=== PATIENT | male | born 1995 | race Hispanic/Latino ===

== ENCOUNTER 2024-06-07 04:45 | Observation (INO) | payer SELFPAY ==
[~2024-06-07] VITALS: Ht 165.1 cm; Wt 94.0 kg
[~2024-06-07 04:45] MED LIST: ASPI-1005 PO; ATOR40TA69 PO; FERS325 PO; METO-408 PO; PRAS10TA9 PO
[2024-06-07 05:15] LABS: BASOPHILS # (AUTO) 0.04 K/uL (0.00-0.20); BASOPHILS % (AUTO) 0.4 % (0.0-5.0); EOSINOPHILS # (AUTO) 0.16 K/uL (0.00-0.70); EOSINOPHILS % (AUTO) 1.8 % (0.0-8.0); HEMATOCRIT 32.3 % (42-54); IMMATURE GRANULOCYTE ABSOLUTE 0.04 K/uL (0-1); LYMPHOCYTES # (AUTO) 1.6 K/uL (1.0-4.8); LYMPHOCYTES % (AUTO) 18.3 % (21.0-51.0); MEAN CORPUSCULAR HEMOGLOBIN 27.3 pg (27.0-33.0); MEAN CORPUSCULAR HGB CONC 32.2 g/dL (32.0-36.0); MEAN CORPUSCULAR VOLUME 84.8 fL (79-99); MONOCYTES # (AUTO) 0.7 K/uL (0.1-1.0); MONOCYTES % (AUTO) 7.8 % (3.0-13.0); NEUTROPHILS # (AUTO) 6.4 K/uL (1.8-7.7); NEUTROPHILS % (AUTO) 71.3 % (40.0-77.0); PLATELET COUNT (AUTO) 157 K/uL (130-400); RED BLOOD CELL COUNT(AUTO) 3.81 MIL/uL (4.50-6.20); RED CELL DISTRIBUTION WIDTH 13.2 % (11.0-15.5); WHITE BLOOD COUNT (AUTO) 8.9 K/uL (4.8-10.8)
[2024-06-07 05:22] LABS: CREATININE 0.9 mg/dL (0.5-1.3); POTASSIUM 4.2 mmol/L (3.5-5.1)
[2024-06-07] MEDS: ketOROlac 15MG/ML VIAL (15MG/ML) IV ONE (05:25)
[2024-06-07] MEDS: morPHINE 4 MG SYG IVP ONE (05:25)
[2024-06-07] MEDS: ORPHENADRINE 60MG/2ML IVP ONE (05:26)
[2024-06-07] MEDS: 0.9%NACL 1000ML 1,000 ML IV ONE (05:27)
--- NOTE | 2024-06-07 05:31 | ERN ---
General Chief Complaint: Muscle Spasm Stated Complaint: C/O BACK SPASMS Time Seen by MD: 05:03 History of Present Illness Initial Comments 29-year-old male who presents for 2-3 days left flank/lower back pain. Patient reports it is positional, severe at times, waxes and wanes. Reports that he thinks it is a muscle spasm but he did recently have an NSTEMI with catheterization and he started multiple new medications, so he is worried that there may be another cause. He denies any other systemic symptoms such as fevers, vomiting, chest pains, dyspnea, or urinary symptoms. No GI symptoms. He has no neurovascular deficits, no anesthesias or paresthesias, no incontinence, no other major complaints. Pain is in the lower flank area, nonradiating. Increase with certain movements and palpation. Allergies: Coded Allergies: No Known Drug Allergies (Unverified Allergy, Unknown, 05/21/24) Home Meds Reported Medications Ferrous Sulfate (Iron) 325 Mg (65 Mg Iron) Tablet, 325 MG PO DAILY, TAB 06/07/24 Atorvastatin Calcium (LIPITOR) 40 Mg Tablet, 40 MG PO HS, TAB 05/27/24 Metoprolol Succinate (Metoprolol Succinate) 25 Mg Tab.er.24h, 25 MG PO DAILY, TAB 05/27/24 Prasugrel HCl (Prasugrel HCl) 10 Mg Tablet, 10 MG PO DAILY, TAB 05/27/24 Aspirin (ASPIRIN 81MG CHEW TAB) 81 Mg Tab.chew, 81 MG PO DAILY, TAB.CHEW 05/27/24 Discontinued Reported Medications Ferrous Sulfate (Ferrous Sulfate) 325 Mg (65 Mg Iron) Ectab, 1 TAB PO DAILY for 30 Days, #30 TAB 0 Refills 05/27/24 Past Medical History Past Medical History: Unknown Past Surgical History: Other Surgical History Other: CARDIAC STENT ROS Dictation CONSTITUTIONAL: No chills, no fever, no weakness, no diaphoresis, no malaise. HEAD/FACE: No signs of trauma. EENT: No eye pain, no blurred vision, no tearing, no double vision, no ear pain, no ear discharge, no nose pain, no nasal congestion, no throat pain, no throat swelling, no mouth pain. RESPIRATORY: No cough, no orthopnea, no SOB, no stridor, no wheezing. CARDIOVASCULAR: No chest pain, no edema, no palpitations, no syncope. GASTROINTESTINAL/ABDOMINAL: No abdominal pain, no constipation, no diarrhea, no nausea, no vomiting. GENITOURINARY: No abnormal discharge, no dysuria, no frequent urination, no hematuria. No complaints of pain in the genitals. MUSCULOSKELETAL: Left flank pain INTEGUMENTARY: No change in color, no change in hair/nails, no dryness, no lesion, no lumps, no rash. NEUROLOGICAL/PSYCH: No anxiety, not depressed, no emotional problem, no headache, no numbness, no pre-existing deficit, no history of seizures, no tremors, no weakness. HEMATOLOGIC/LYMPHATIC: Not anemic, no history of blood clots, no apparent bleeding, no bruising, glands not swollen. All Systems Negative, Except as Noted. Physical Exam Physical Exam Dictation VITAL SIGNS: Reviewed. GENERAL APPEARANCE: Alert, oriented x3, no acute distress HEAD AND FACE: Non-traumatic. EYES: PERRL, pink conjunctivas, eyelid no trauma, anterior chamber clear. EARS: Pinnas intact and no signs of trauma or erythema. Ear canals clear and n o discharge. TMs no erythema. NOSE: No discharge, no bleeding. OROPHARYNX: Mouth normal, teeth no caries, tongue pink. Pharynx clear, no erythema. Tonsils no exudates, no abscesses noted. Mucous membrane moist. NECK: Supple, non-tender, no thyromegaly, no masses, no JVD, no bruits. BREAST: Deferred. CHEST: No tenderness, no crepitus, no paradoxical movement, no retractions. LUNGS: Clear, well-ventilated, symmetric, no rales, no wheezing, no rhonchi, no stridor, good breath sounds bilaterally. HEART: Regular rate, regular rhythm, no murmur, no gallops. VASCULAR: No peripheral edema. ABDOMEN: Soft, positive bowel sounds, nondistended, no guarding, nontender, no rebound, no masses no hepatomegaly, no splenomegaly, no Boyd's sign, no hernias. RECTAL: Deferred. GENITAL: Deferred. NEUROLOGICAL: Normal speech, gross motor function intact, gross sensory function intact. MUSCULOSKELETAL: Neck nontender, full range of motion, back nontender, full range of motion. EXTREMITIES: Nontender, full range of motion. SKIN: Color pink, dry, no turgor, no rash, no lacerations, no abrasions, no contusions. LYMPHATICS: Deferred. Results Laboratory and Microbiology Lab and Micro Result MDM CC: L flank pain Historian: patient Comorbidities: recent NSTEMI w/ stent placement, retroperitoneal hematoma Limitations by social determinates of health: uninsured Ddx: bleeding, MSK, etc VSS No red flags regarding back pain on clinical exam. Hemoglobin is 10.4, baseline for patient. Chemistry panel is normal. Urinalysis unremarkable. CCT abdomen and pelvis without contrast (per my independent interpretation) shows a retro to nail hematoma, likely old. Patient received 1 L normal saline, IV Toradol and orphenadrine and morphine here in the ER. Lidocaine watch paged. Patient does have this hematoma, it is unclear if it is actively bleeding or not. It may be causing his pain in his discomfort. We will admit for observation. Hospitalist consulted. Patient agrees with the plan. ED Course Vital Signs Date Time Temp Pulse Resp B/P (MAP) Pulse Ox O2 Delivery O2 Flow Rate FiO2 06/07/24 04:46 99.0 98 20 135/70 99 Room Air DX & DISP Disposition: Inpatient Departure Impression: Primary Impression: Retroperitoneal hematoma Condition: Stable Referrals: SELF,REFERRAL (PCP) BRADFORD BELLE DO Jun 07, 2024 05:31 MINO TAN MD Jun 07, 2024 09:06
[2024-06-07] MEDS: LIDOCAINE 5% TOPICAL PATCH TP ONE (06:46)
[2024-06-07 06:55] LABS: APPEARANCE,URINE CLEAR (CLEAR); BILIRUBIN,URINE NEGATIVE (NEGATIVE); COLOR,URINE LIGHT-YELLOW (YELLOW); GLUCOSE, URINE (UA) NEGATIVE (NEGATIVE); KETONES,URINE 5 mg/dL (NEGATIVE); LEUKOCYTE ESTERASE ,URINE NEGATIVE Leu/uL (NEGATIVE); NITRATE,URINE NEGATIVE (NEGATIVE); OCCULT BLOOD,URINE NEGATIVE (NEGATIVE); PROTEIN,URINE NEGATIVE (NEGATIVE); UROBILINOGEN,URINE 0.2 mg/dL (0.2-1.0)
--- NOTE | 2024-06-07 07:06 | EKG ---
[facility] Test Date: 2024-06-07 Test Time: 04:57:16 Pat Name: PORTER RODRIGUEZ Department: ED Room: 304 Gender: M Staff Trainer: [id number] : 1995 Requested By: BRADFORD BELLE Order Number: [id number] Reading MD: Galdino Sanchez Measurements Intervals [place] Rate: 94 P: 31 [place]: 112 QRS: 28 QRSD: 85 T: -18 QT: 324 QTc: 405 Interpretive Statements Sinus rhythm Probable left atrial enlargement Compared to ECG 05/23/2024 04:14:27 Left ventricular hypertrophy no longer present T-wave abnormality no longer present Possible ischemia no longer present Electronically Signed On 06-08-2024 10:28:50 ASSISTANT PROFESSOR OF ANTHROPOLOGY by Galdino Sanchez Please click the below link to view image of tracing.
[2024-06-07 07:08] LABS: ADD UA MICROSCOPIC NO
[2024-06-07] MEDS ORDERED: hydrALAZine 20MG/ML VIAL IV PRN (10:00)
[2024-06-07] MEDS ORDERED: ondanSETRON 4MG INJ IV PRN (10:00)
[2024-06-07] MEDS ORDERED: GLUCAGON 1MG KIT 1 MG ML IM PRN (10:00)
[2024-06-07] MEDS ORDERED: MAG/ALUM/SIMETH 30 ML UDCUP PO PRN (10:00)
[2024-06-07] MEDS ORDERED: LACTULOSE 20 GM/30 ML UDCUP PO PRN (10:00)
[2024-06-07] MEDS ORDERED: PoTASSium chl 10% ELIXIR 20MEQ 20 MEQ/15 ML UDCUP PO PRN (10:00)
[2024-06-07] MEDS ORDERED: ZOLPidem TARTrate 5 MG TAB PO PRN (10:00)
[2024-06-07] MEDS ORDERED: DiphenhydrAMINE HCL 50 MG/ML VIAL IV PRN (10:00)
[2024-06-07] MEDS ORDERED: DEXTROSE 50%-WATER 50 ML DISP.SYRIN IV PRN (10:00)
[2024-06-07] MEDS ORDERED: NITROGLYCERIN 0.4 MG SL TAB SL PRN (10:00)
[2024-06-07] MEDS ORDERED: morPHINE 2 MG SYG IVP PRN (10:00)
[2024-06-07] MEDS ORDERED: PoTASSium chloRIDE 10MEQ/100ML 100 ML IV PRN (10:00)
[2024-06-07] MEDS ORDERED: FAMOTIDINE 20MG VIAL IV PRN (10:00)
[2024-06-07] MEDS ORDERED: acetaMINOPHEN 325 MG TAB PO PRN ×3 (10:00)
[2024-06-07] MEDS ORDERED: guaiFENesin-DM 200/20MG 10ML PO PRN (10:00)
[2024-06-07] MEDS ORDERED: MAGNESIUM 2GM PREMIX 50ML 50 ML IV PRN (10:00)
[2024-06-07] MEDS ORDERED: PoTASSium chloRIDE 10MEQ SR 10 MEQ/TAB TAB.SR.24H PO PRN (10:00)
[2024-06-07] MEDS ORDERED: traMADol /APAP 37.5MG/325MG TAB PO PRN (10:00)
--- NOTE | 2024-06-07 10:21 | HP ---
[facility]ORY [facility] PHYS[facility] Date of Service: Jun 07, 2024 Time of Service: 09:55 PCP:self referring Admitting: Dr Chowdary, Allergies: No Allergy Information Available, No Known Drug Allergies HISTORY OF PRESENT ILLNESS: [ Patient is 29 years old male with a past medical history of stent placement with Dr. Long on May 23 2024 s/p rectal peritoneal hematoma, who came to emergency department for the evaluation of the left lung pain/lower back pain for the past two days. Patient reports that the pain is positional, severe at times which comes and goes. Patient also stated that when he moves head to the right or to the left he feels like there was a shooting pain down goes to the left flank pain/back pain. He denies any other systemic symptoms such as fevers, vomiting, chest pains, dyspnea, or urinary symptoms. No GI symptoms. He has no neurovascular d eficits, no anesthesias or paresthesias, no incontinence, no other major complaints. Increase with certain movements and palpation. Most recent vital signs temperature 98.4 pulse 69 respiration 14 blood pressure 113/59 patient is on room air satting 98%. UA negative. WBC 8.9 hemoglobin 10.4 hematocrit 32.3 platelets 157. Sodium 132 potassium 4.2 CO2 23 BUN eight creatinine 0.9 GFR 119 glucose [address] abdomen/pelvis, ultrasound renal, CT spine cervical, CT spine thoracic, CT spine lumbar still pending. Patient will be admitted under hospitalist care for further evaluation. Patient agrees with the plan.] REVIEW OF SYSTEMS CONSTITUTIONAL: Denies fevers, chills, or night sweats. No unintentional weight loss reported. NEUROLOGICAL: Denies headache, amaurosis fugax, motor weakness, sensory de ficit, vertigo/spinning sensation, gait abnormalities, or tremors. Complains of shooting pain with the neck movement down to the left flank pain ENT: No hearing loss, otalgia, otorrhea, rhinitis, rhinorrhea, hoarseness, or sore throat. CARDIOVASCULAR: Denies any exertional angina, dyspnea on exertion, orthopnea, paroxysmal nocturnal dyspnea, palpitations, life-threatening arrhythmias, claudication. PULMONARY: Denies any shortness of breath, cough, phlegm/sputum, hemoptysis, pleuritic chest pain. SLEEP: Denies morning headaches, daytime somnolence or napping. Denies difficulty falling asleep, staying asleep, waking from sleep. Denies knowledge of snoring. GASTROINTESTINAL: Denies any type of dysphagia to either liquids or solids. Denies nausea, vomiting, pyrosis, early satiety, abdominal pain, diarrhea, constipation, or changes in stool consistency or caliber. Denies coffee-ground emesis, hematemesis, hematochezia, or melanotic stools. GENITOURINARY: Denies frequency, urgency, nocturia, hematuria or incontinence (Storage/Irritative symptoms.) Low urinary stream, straining to void, urinary intermittency or hesitancy, splitting of the voiding stream, terminal dribbling. ENDOCRINOLOGIC: Denies polyuria, polydipsia, polyphagia or heat/cold intolerances. HEMATOLOGIC: Denies thrombophilia/previous clots, or coagulopathy/bleeding disorders. ONCOLOGIC: Denies personal history of malignancy. DERMATOLOGIC: Denies rashes or pruritus. PSYCHIATRIC: Denies any suicidal or homicidal ideation. Denies hallucinations. PAST MEDICAL HISTORY: [ Stent placement May 23, 2024, obesity] PAST SURGICAL HISTORY: [ Stent placement May 23, 2024 with . ] PAST SOCIAL HISTORY: [ Patient denies smoking. Patient drinks occasionally. Patient stated that last time he was smoking marijuana it was in [place] last month May 05, 2024 ] FAMILY HISTORY: [ Noncontributory. Patient lives at home with mother ] Coded Allergies: No Known Drug Allergies (Unverified Allergy, Unknown, 05/21/24) PHYSICAL EXAM GENERAL APPEARANCE: The patient is awake, alert, and oriented, in no acute cardiopulmonary distress. NEUROLOGICAL: Cranial nerves II-XII grossly intact. Motor is 5/5 in bilateral upper and lower extremities proximal to distal. No sensory deficits. HEENT: Face is symmetric. Pupils are equal and reactive. Extraocular movements are intact. NECK: Supple. No JVD. No thyromegaly. No submental, submandibular, pre-/postauricular, occipital or supraclavicular lymphadenopathy. CHEST: Normal chest expansion. No Telemetry. LUNGS: Absence of any rales, rhonchi or any wheezing. CARDIOVASCULAR: Regular. S1 and S2 normal. No appreciable rubs, murmurs or gallops. ABDOMEN: Soft, nontender, and nondistended. There is no rebound, voluntary guarding, or rigidity. : Deferred. No Sin. EXTREMITIES: Non-edematous and not cyanotic. No clubbing. Good capillary refill. SKIN: No skin breakdown. Vital Sign (Last 24 Hours) 06/07/24 07:48 Temp 98.4 Pulse 69 Resp 14 B/P (MAP) 113/59 Pulse Ox 98 O2 Delivery Room Air* O2 Flow Rate 0 FiO2 21 LABS: Laboratory: Test 06/07/24 06:43 06/07/24 05:08 Range/Units Urine Color LIGHT-YELLOW YELLOW Urine Appearance CLEAR CLEAR Urine pH 6.0 5.0-8.0 Urine Specific Valders 1.006 1.001-1.031 Urine Protein NEGATIVE NEGATIVE mg/dL Urine Glucose (UA) NEGATIVE NEGATIVE mg/dL Urine Ketones 5 H NEGATIVE mg/dL Urine Occult Blood NEGATIVE NEGATIVE Urine Nitrate NEGATIVE NEGATIVE Urine Bilirubin NEGATIVE NEGATIVE mg/dL Urine Urobilinogen 0.2 0.2-1.0 mg/dL Urine Leukocyte Esterase NEGATIVE NEGATIVE Roberto/uL White Blood Count 8.9 4.8-10.8 K/uL Red Blood Count 3.81 L 4.50-6.20 MIL/uL Hemoglobin 10.4 L 14.0-18.0 g/dL Hematocrit 32.3 L 42-54 % Mean Corpuscular Volume 84.8 79-99 fL Mean Corpuscular Hemoglobin 27.3 27.0-33.0 pg Mean Corpuscular Hemoglobin Concent 32.2 32.0-36.0 g/dL Red Cell Distribution Width 13.2 11.0-15.5 % Platelet Count 157 130-400 K/uL Mean Platelet Volume 10.8 H 7.5-10.5 fL Immature Granulocyte % (Auto) 0.4 0-1 % Neutrophils (%) (Auto) 71.3 40.0-77.0 % Lymphocytes (%) (Auto) 18.3 L 21.0-51.0 % Monocytes (%) (Auto) 7.8 3.0-13.0 % Eosinophils (%) (Auto) 1.8 0.0-8.0 % Basophils (%) (Auto) 0.4 0.0-5.0 % Neutrophils # (Auto) 6.4 1.8-7.7 K/uL Lymphocytes # (Auto) 1.6 1.0-4.8 K/uL Monocytes # (Auto) 0.7 0.1-1.0 K/uL Eosinophils # (Auto) 0.16 0.00-0.70 K/uL Basophils # (Auto) 0.04 0.00-0.20 K/uL Absolute Immature Granulocyte (auto 0.04 0-1 K/uL Nucleated Red Blood Cells 0.0 0.0-0.19 % Sodium Level 132 L 136-145 mmol/L Potassium Level 4.2 3.5-5.1 mmol/L Chloride Level 98 L 101-111 mmol/L Carbon Dioxide Level 23 21-32 mmol/L Blood Urea Nitrogen 8 7-18 mg/dL Creatinine 0.9 0.5-1.3 mg/dL Glomerular Filtration Rate Calc 119 >90 mL/min Random Glucose 103 70-105 mg/dL Total Calcium 9.5 8.5-10.1 mg/dL Current Medications Medications (Trade) Dose Ordered Sig/Clara Route PRN Reason Start Time Stop Time Status Last Admin Dose Admin Acetaminophen (TYLenol 325MG TAB) 650 mg Q4H PRN PO MILD PAIN (1-3) 06/07/24 10:00 07/07/24 09:59 UNV Acetaminophen (TYLenol 325MG TAB) 650 mg Q6H PRN PO MILD PAIN (1-3) 06/07/24 10:00 07/07/24 09:59 UNV Acetaminophen (TYLenol 325MG TAB) 650 mg Q6H PRN PO TEMPERATURE GREATER THAN 101.5 06/07/24 10:00 07/07/24 09:59 UNV Al Hydroxide/Mg Hydroxide (MAALox PLUS 30ML) 30 ml Q6H PRN PO INDIGESTION 06/07/24 10:00 07/07/24 09:59 UNV Dextrose (D50w) 50 ml AD PRN IV HYPOGLYCEMIA PROTOCOL 06/07/24 10:00 07/07/24 09:59 Diphenhydramine HCl (BENAdryl INJ) 25 mg Q6H PRN IV SEVERE ITCHING/RASH 06/07/24 10:00 07/07/24 09:59 UNV Famotidine (Pepcid 20mg Vial) 20 mg BID IV 06/07/24 21:00 07/07/24 20:59 UNV Famotidine (Pepcid 20mg Vial) 20 mg BID PRN IV NAUSEA/VOMITING 06/07/24 10:00 07/07/24 09:59 UNV Glucagon (Glucagon 1mg Kit) 1 mg AD PRN IM HYPOGLYCEMIA PROTOCOL 06/07/24 10:00 07/07/24 09:59 Guaifenesin/ Dextromethorphan (RobiTUSSin DM 200/20MG 10ML) 10 ml Q4H PRN PO COUGH 06/07/24 10:00 07/07/24 09:59 UNV Hydralazine HCl (APRESOLine 20MG INJ) 10 mg Q6H PRN IV For:SBP above 160;DBP above 90 06/07/24 10:00 07/07/24 09:59 UNV Insulin Human Regular (humuLIN R 100 UNIT/ML 3ML) INSULIN SLIDING SCAL... ACHS SQ 06/07/24 11:30 07/07/24 11:29 Ketorolac Tromethamine (toRADol) 15 mg Q8H PRN IV MODERATE PAIN (4-6) 06/07/24 10:00 06/12/24 09:59 UNV Lactulose (Constulose 20gm/ 30ml Udcup) 20 gm BID PRN PO CONSTIPATION 06/07/24 10:00 07/07/24 09:59 UNV Magnesium Sulfate 50 ml @ 0 mls/hr PROTOCOL PRN IV OTHER [SEE ORDER COMMENTS] 06/07/24 10:00 07/07/24 09:59 Morphine Sulfate (morPHINE 2MG SYG) 1 mg Q4H PRN IVP SEVERE PAIN (7-10) 06/07/24 10:00 06/14/24 09:59 UNV Nitroglycerin (Nitrostat) 0.4 mg PROTOCOL PRN SL CHEST PAIN 06/07/24 10:00 07/07/24 09:59 UNV Ondansetron HCl (zoFRAN 4MG INJ) 4 mg Q6H PRN IV NAUSEA/VOMITING 06/07/24 10:00 07/07/24 09:59 UNV Potassium Chloride 100 ml @ 100 mls/hr AD PRN IV POTASSIUM PROTOCOL 06/07/24 10:00 07/07/24 09:59 Potassium Chloride (K-Dur 10meq Sr Tab) 10 meq AD PRN PO POTASSIUM PROTOCOL 06/07/24 10:00 07/07/24 09:59 Potassium Chloride (KCl 10% Elixir 20meq/15ml) 10 meq AD PRN PO POTASSIUM PROTOCOL 06/07/24 10:00 07/07/24 09:59 Tramadol/ Acetaminophen (UltraCET) 1 tab Q6H PRN PO MODERATE PAIN (4-6) 06/07/24 10:00 06/12/24 09:59 UNV Zolpidem Tartrate (AmbIEN) 5 mg HS PRN PO INSOMNIA 06/07/24 10:00 07/07/24 09:59 UNV DIAGNOSTICS / RADIOLOGY: [ ] ASSESSMENT: [ Intractable Left flank pain of unknown origin POA Uncontrolled hypertension POA Multifactorial anemia POA Electrolyte imbalance hyponatremia Na 132, hypochloremia 98 History of stent placement May [id number] with History of rectal peritoneal hematoma per CT abdomen/pelvis ] PLAN: [ Admit to: Medical-surgical floor with telemetry Consults: None Antibiotics: None Tests: Ultrasound renal. CT spine cervical. CT spine thoracic. CT spine lumbar NEURO: Minimize central acting medications as possible. Fall Precautions. Well lighted room through the day and minimize interruptions through the night to prevent acute delirium. PULMONARY: Supplemental 02 as needed BiPAP as necessary, for respiratory distress Titrate Fio2 to keep Spo2 > or = 90% DuoNebs and CPT as needed IS hourly while awake for pulmonary hygiene Out of bed to chair as tolerated VAP Bundle Maintain aspiration precautions at all times CARDIOVASCULAR: Follow hemodynamics. Vital signs per facility protocol GI & NUTRITION: Continue nutritional support Aspirations precautions Prokinetic agents and laxatives as needed KIDNEYS & ELECTROLYTES: Strict monitoring of intake and output Daily weights Avoid nephrotoxic agents Monitor electrolytes and replace as needed Goal urine output of 30mL/hr or 0.5mL/kg/hr Medications to be dosed according to renal function. Avoid contrast if possible ENDOCRINE: Maintain blood glucose between 100-180 at all times. Insulin sliding scale for blood glucose management Hypoglycemia and hyperglycemia protocol in place INFECTIOUS DISEASE: Trend temperature, WBC and procalcitonin level Follow cultures, deescalate antibiotics as soon as possible. Panculture if new onset fever HEMATOLOGY & COAGULATION: Monitor H&H. Keep Hgb > 7 Transfuse 1 unit of PRBC for Hgb < 7 Transfuse 1 pack of platelets of platelets < 20, 000 Watch for any signs and symptoms of bleeding SKIN: Pressure ulcer prevention per facility protocol Specialty mattress as needed Treatment plan discussed with patient and family at the bedside Medications to be reconciled once obtained by patient and/or family and available to be reconciled in computer p.r.n. medication for pain nausea and vomiting Questions were answered We will continue to monitor the patient closely Sanitary Engineer for disposition Rehab: PT/OT GI: PPI DVT: SCD's Code Status: Full Resuscitation Disposition: TBD Prognosis: Guarded ] ATTESTATION BY PHYSICIAN I have seen and examined the patient. I reviewed the documentation, medical decision making, and treatment plan as noted by the mid-level provider above. I agree with the findings and plan of care. Iliana Chowdary MD, [facility] [employer] Jun 07, 2024 10:21
[2024-06-07] MEDS ORDERED: CYCLOBENZAPRINE HCL 10 MG TABLET PO PRN (10:30)
--- NOTE | 2024-06-07 10:47 | HMCIMG ---
CT THORACIC SPINE WITHOUT CONTRAST INDICATION: Severe back pain TECHNIQUE: Axial helical 2 mm thick images obtained through the thoracic spine obtained without contrast. Coronal and sagittal reformatted images were submitted for interpretation. CT was performed with one or more of the following dose reduction techniques: Automated exposure control, adjustment of the mA and/or kV according to patient size, or use of iterative reconstruction technique. COMPARISON: None FINDINGS: Vertebral bodies are normal in height, without evidence for fracture or compression deformity. No evidence for subluxation. The intervertebral discs are well-preserved. No significant disc protrusion/extrusion or moderate of high-grade neuroforaminal narrowing or central canal stenosis. No significant facet disease. The paravertebral soft tissues appear normal. Left lung base opacities. IMPRESSION: Left lung base atelectasis favored over evolving pneumonia at this juncture. Otherwise, normal CT imaging of the thoracic spine.
[2024-06-07] MEDS ORDERED: FERR-82 PO (10:48)
--- NOTE | 2024-06-07 10:50 | HMCIMG ---
CT LUMBAR SPINE WITHOUT CONTRAST INDICATION: Severe back pain TECHNIQUE: Noncontrast helical CT of the lumbar spine obtained at 2 mm slice thickness with reconstructions in the coronal and sagittal planes. CT was performed with one or more of the following dose reduction techniques: Automated exposure control, adjustment of the mA and/or kV according to patient size, or use of iterative reconstruction technique. COMPARISON: None FINDINGS: Moderate amount of right retroperitoneal hemorrhage. Normal lordosis is maintained. Vertebral bodies are normal in height, without evidence for fracture or compression deformity. No evidence for subluxation. Additional specific findings are as follows: T12-L1: No significant disc protrusion/extrusion or moderate or high-grade neuroforaminal narrowing or central canal stenosis. No significant facet disease. L1-L2: No significant disc protrusion/extrusion or moderate or high-grade neuroforaminal narrowing or central canal stenosis. No significant facet disease. L2-L3: No significant disc protrusion/extrusion or moderate or high-grade neuroforaminal narrowing or central canal stenosis. No significant facet disease. L3-L4: No significant disc protrusion/extrusion or moderate or high-grade neuroforaminal narrowing or central canal stenosis. No significant facet disease. L4-L5: No significant disc protrusion/extrusion or moderate or high-grade neuroforaminal narrowing or central canal stenosis. No significant facet disease. L5-S1:No significant disc protrusion/extrusion or moderate or high-grade neuroforaminal narrowing or central canal stenosis. No significant facet disease. The sacroiliac joints appear normal. The paravertebral soft tissues appear normal. IMPRESSION: Moderate amount of right retroperitoneal hemorrhage. Pre and postcontrast CT imaging of the abdomen and pelvis is recommended for further evaluation. Otherwise, normal CT imaging of the lumbar spine.
--- NOTE | 2024-06-07 10:56 | HMCIMG ---
PORTABLE CHEST RADIOGRAPH INDICATION: L flank pain COMPARISON: 05/21/2024 FINDINGS: Heart size is normal. The pulmonary vascularity and florian appear normal. No abnormal pulmonary parenchymal opacity or consolidation identified. No significant pleural effusion noted. No pneumothorax detected. IMPRESSION: No radiographic evidence for any acute cardiopulmonary process.
--- NOTE | 2024-06-07 10:58 | HMCIMG ---
CT ABDOMEN WITHOUT CONTRAST. CT PELVIS WITHOUT CONTRAST. INDICATION: Right flank pain TECHNIQUE: Routine transaxial imaging using 5 mm slice thickness through the abdomen and pelvis without the administration of IV contrast. Thin slice reconstructions are also provided. Coronal and sagittal reformatted images acquired for interpretation. CT was performed with one or more of the following dose reduction techniques: Automated exposure control, adjustment of the mA and/or kV according to patient size, or use of iterative reconstruction technique. COMPARISON: None FINDINGS: ON NONCONTRAST IMAGING: ABDOMEN: Heart size is normal. Visible lung bases are clear. No abnormal renal calcifications, hydronephrosis, perinephric inflammation, or proximal hydroureter detected. The liver is normal in size and smooth in contour without biliary duct dilation. The spleen is normal in size and attenuation. The gallbladder appears normal. The pancreas appears normal without pancreatic duct dilation. The adrenal glands appear normal. Right-sided retroperitoneal hematoma lies anterior to the right psoas muscle and encroaches upon the anterior fibers of the right psoas muscle, including extension from the level of the right kidney to the right iliac fossa measuring 20.0 cm (craniocaudal) by 6.0 cm (transverse) by 2.2 cm (AP). Right kidney is anteriorly displaced as a result, but appears otherwise normal. No significant abdominal, retrocrural or retroperitoneal adenopathy noted. No evidence for intra-abdominal free air or organized fluid collection. No aortic aneurysmal dilation identified. PELVIS: No abnormal calcifications within the urinary bladder or distal ureters. No evidence for free air or organized pelvic fluid collection. No significant pelvic adenopathy detected. Visualized small and large bowel loops appear unremarkable. Terminal ileum appears unremarkable. The appendix appears normal. Visible osseous structures are intact. IMPRESSION: Right-sided retroperitoneal hematoma without any intra-abdominal or intrapelvic organ abnormality.
--- NOTE | 2024-06-07 11:05 | HMCIMG ---
CT CERVICAL SPINE WITHOUT CONTRAST INDICATION: Severe neck pain TECHNIQUE: Contiguous axial computed tomography imaging using 2 mm slice thickness through the cervical spine. Reconstructions in the sagittal and coronal planes. CT was performed with one or more of the following dose reduction techniques: Automated exposure control, adjustment of the mA and/or kV according to patient size, or use of iterative reconstruction technique. COMPARISON: None. FINDINGS: Normal lordosis is maintained. Vertebral bodies are normal stature without evidence for compression deformity or fracture. No evidence for subluxation. The intervertebral disc heights are well-preserved. The craniocervical junction appears normal. The atlantoaxial articulation is within normal limits. The dens is intact. The pre- and paravertebral soft tissues appear unremarkable. IMPRESSION: No evidence for fracture or subluxation.
[2024-06-07] MEDS: INSULIN humuLIN R 100 UNIT/ML 3ML SQ SCH (11:30)
--- NOTE | 2024-06-07 13:36 | HMCIMG ---
ULTRASOUND RENAL COMPLETE INDICATION: Left flank pain TECHNIQUE: Routine ultrasound of the kidneys and urinary bladder with grayscale and color Doppler imaging was performed in real-time, and subsequently made available for review. COMPARISON: No prior studies available for comparison. FINDINGS: The right kidney measures 10.0 x 5.5 x 4.9 cm. No abnormal mass demonstrated. No evidence for hydronephrosis or shadowing stone. The left kidney measures 10.0 x 5.2 x 4.8 cm. No abnormal mass demonstrated. No evidence for hydronephrosis or shadowing stone. Urinary bladder thickness measures 0.3 cm. IMPRESSION: Normal sonographic appearance of the kidneys and urinary bladder.
--- NOTE | 2024-06-07 13:43 | HMCIMG ---
NUCLEAR MEDICINE VENTILATION/PERFUSION SCAN INDICATION: Elevated d-dimer COMPARISON: Most Recent Chest Radiograph from 06/05/2024. RADIOPHARMACEUTICALS: 6.0 mCi of xenon-133 gas and 5.0 mCi of intravenous Tc 99m MAA FINDINGS: No abnormal matched or mismatched ventilation or perfusion defect noted. Symmetric bilateral distribution of radiopharmaceutical on both the perfusion and ventilation images identified. IMPRESSION: Negative for pulmonary embolism.
[2024-06-07] MEDS: ketOROlac 15MG/ML VIAL (15MG/ML) IV PRN (14:41)
--- NOTE | 2024-06-07 14:50 | NUR ---
RECEIVED REPORT FROM SAMAN BOSTON-ER. PT WILL BE TRANSFERRING TO ROOM 304.
--- NOTE | 2024-06-07 14:53 | NUR ---
CALLED REPORT TO JAYANT NURSE AT 1450, PT STABLE NO DISTRESS VITALS WNL NO C/O PAIN , PT MEDICATED FOR PAIN PRIOR TO TRANSFER, HOME MEDICATIONS RECONCILED. PT TRANSFERRED BY STRETCHER W/PERSONAL BELONGINGS , MOTHER AT BEDSIDE.
--- NOTE | 2024-06-07 15:00 | NUR ---
PT IN ROOM 304 AOX3, MOTHER AT BEDSIDE, DENIES ANY PAIN OR DISCOMFORT AT THIS TIME. SKIN INTACT, STABLE VS, 18G RFA,NO 02 IN PLACED, SL. BED LOW AND LOCKED, SIDERAILS X2 UP, CALL LIGHT WITHIN REACH. NO FURTHER COMMENTS OR CONCERNS AT THIS TIME.
[2024-06-07 16:00] VITALS: BP_SYST 122; BP_SYST 148; BP_DIAS 70; BP_DIAS 84; PULSE 69; PULSE 80; RESP 19; RESP 20; TEMP 98.2; TEMP 98.4
[2024-06-07 19:00] VITALS: O2SAT 99
[2024-06-07] MEDS: FAMOTIDINE 20MG VIAL IV SCH (19:06)
[2024-06-07] MEDS: atorVAStatin 40 MG TABLET PO SCH (19:07)
[2024-06-07 20:00] VITALS: BP 125/73; PULSE 76; RESP 18; TEMP 98.2
[2024-06-08] VITALS: BP 119/62; PULSE 81; RESP 18; TEMP 98.2
--- NOTE | 2024-06-08 03:19 | NUR ---
PM NOTE PATIENT NOTED LAYING IN BED. AWAKE, ALERT, ORIENTED X4. RESPIRATIONS EVEN AND UNLABORED. NO SIGNS OR SYMPTOMS OF DISCOMFORT NOTED AT THIS TIME. PATIENT VOICED PAIN IS "TOLERABLE" AT THIS TIME. PATIENT DENIES NEEDING PAIN MEDICATION AT THIS TIME.
[2024-06-08 04:00] VITALS: BP 124/67; PULSE 83; RESP 18; TEMP 98.4
[2024-06-08 04:25] LABS: BASOPHILS # (AUTO) 0.03 K/uL (0.00-0.20); BASOPHILS % (AUTO) 0.5 % (0.0-5.0); EOSINOPHILS # (AUTO) 0.17 K/uL (0.00-0.70); EOSINOPHILS % (AUTO) 2.7 % (0.0-8.0); HEMATOCRIT 27.1 % (42-54); IMMATURE GRANULOCYTE ABSOLUTE 0.02 K/uL (0-1); LYMPHOCYTES # (AUTO) 1.4 K/uL (1.0-4.8); LYMPHOCYTES % (AUTO) 21.7 % (21.0-51.0); MEAN CORPUSCULAR HEMOGLOBIN 27.2 pg (27.0-33.0); MEAN CORPUSCULAR HGB CONC 32.1 g/dL (32.0-36.0); MEAN CORPUSCULAR VOLUME 84.7 fL (79-99); MONOCYTES # (AUTO) 0.6 K/uL (0.1-1.0); MONOCYTES % (AUTO) 9.6 % (3.0-13.0); NEUTROPHILS # (AUTO) 4.1 K/uL (1.8-7.7); NEUTROPHILS % (AUTO) 65.2 % (40.0-77.0); PLATELET COUNT (AUTO) 164 K/uL (130-400); RED CELL DISTRIBUTION WIDTH 13.3 % (11.0-15.5); WHITE BLOOD COUNT (AUTO) 6.3 K/uL (4.8-10.8)
[2024-06-08 04:49] LABS: HEMOGLOBIN A1C 5.1 % (4.0-6.0)
[2024-06-08 04:50] LABS: ALBUMIN 2.8 g/dL (3.5-5.0); BILIRUBIN,DIRECT 0.5 mg/dL (0.0-0.3); BILIRUBIN,TOTAL 1.2 mg/dL (0.2-1.0); CREATININE 0.7 mg/dL (0.5-1.3); MAGNESIUM 1.9 mg/dL (1.80-2.40); POTASSIUM 4.2 mmol/L (3.5-5.1); TOTAL PROTEIN, SERUM 6.8 g/dL (6.0-8.3)
--- NOTE | 2024-06-08 04:59 | NUR ---
ABNORMAL LABS CALLED [facility] TO REPORT ELEVATED TROPONIN 218.3. PENDING CALL BACK FROM RADHA WATT.
[2024-06-08 08:00] VITALS: BP 124/72; PULSE 83; RESP 16; TEMP 98.4
[2024-06-08] MEDS: metOPROLol sucCINATE 25 MG TAB.SR.24H PO SCH (08:17)
[2024-06-08] MEDS: FERROUS SULFATE 325 MG TABLET.DR PO SCH (08:17)
[2024-06-08] MEDS: ASPIRIN 81MG CHEW TAB PO SCH (08:17)
[2024-06-08] MEDS: PRASUGREL HCL 10 MG TABLET PO SCH (08:17)
[2024-06-08 08:30] VITALS: O2SAT 98
[2024-06-08 12:00] VITALS: BP 115/74; PULSE 91; RESP 20; TEMP 98.6
[2024-06-08] MEDS ORDERED: CYCL10TA16 PO (13:51)
--- NOTE | 2024-06-08 13:56 | DS ---
Discharge Summary Hospital Course Summary: DATE OF ADMISSION:[06/07/2024] DATE OF DISCHARGE:[06/08/2024] DISPOSITION:[Home] CONDITION:[Medically stable] CONSULTANTS:[None] FOLLOW UP APPOINTMENTS:[PCP 2 to 3 days. 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 Long on May 23 2024 s/p rectal peritoneal hematoma, who came to emergency department for the evaluation of the left lung pain/lower back pain for the past two days. Patient reports that the pain is positional, severe at times which comes and goes. Patient also stated that when he moves head to the right or to the left he feels like there was a shooting pain down goes to the left flank pain/back pain. He denies any other systemic symptoms such as fevers, vomiting, chest pains, dyspnea, or urinary symptoms. No GI symptoms. He has no neurovascular deficits, no anesthesias or paresthesias, no incontinence, no other major complaints. Increase with certain movements and palpation. Most recent vital signs temperature 98.4 pulse 69 respiration 14 blood pressure 113/59 patient is on room air satting 98%. UA negative. WBC 8.9 hemoglobin 10.4 hematocrit 32.3 platelets 157. Sodium 132 potassium 4.2 CO2 23 BUN eight creatinine 0.9 GFR 119 glucose [address] abdomen/pelvis, ultrasound renal, CT spine cervical, CT spine thoracic, CT spine lumbar still pending. Patient will be admitted under hospitalist care for further evaluation. Patient agrees with the plan. Throughout the hospitalization patient underwent V/Q scan which was negative. Thoracic spine CT which showed left lung base atelectasis favored over evolving pneumonia. Normal CT image of thoracic spine. Lumbar spine CT showed moderate amount of right retroperitoneal hemorrhage. Cervical spine CT shows no evidence of fracture or subluxation. Renal ultrasound negative chest x-ray negative. CT abdomen/pelvis showed right-sided retroperitoneal hematoma without any intra-abdominal or intrapelvic organ abnormality which has improved compared to the previous study. Procedure(s): REVIEW OF SYSTEMS CONSTITUTIONAL: Denies fevers, chills, or night sweats. No unintentional weight loss reported. NEUROLOGICAL: Denies headache, amaurosis fugax, motor weakness, sensory deficit, vertigo/spinning sensation, gait abnormalities, or tremors. denies of shooting pain with the neck movement down to the left flank pain ENT: No hearing loss, otalgia, otorrhea, rhinitis, rhinorrhea, hoarseness, or sore throat. CARDIOVASCULAR: Denies any exertional angina, dyspnea on exertion, orthopnea, paroxysmal nocturnal dyspnea, palpitations, life-threatening arrhythmias, claudication. PULMONARY: Denies any shortness of breath, cough, phlegm/sputum, hemoptysis, pleuritic chest pain. SLEEP: Denies morning headaches, daytime somnolence or napping. Denies difficulty falling asleep, staying asleep, waking from sleep. Denies knowledge of snoring. GASTROINTESTINAL: Denies any type of dysphagia to either liquids or solids. Denies nausea, vomiting, pyrosis, early satiety, abdominal pain, diarrhea, constipation, or changes in stool consistency or caliber. Denies coffee-ground emesis, hematemesis, hematochezia, or melanotic stools. GENITOURINARY: Denies frequency, urgency, nocturia, hematuria or incontinence (Storage/Irritative symptoms.) Low urinary stream, straining to void, urinary intermittency or hesitancy, splitting of the voiding stream, terminal dribbling. ENDOCRINOLOGIC: Denies polyuria, polydipsia, polyphagia or heat/cold intolerances. HEMATOLOGIC: Denies thrombophilia/previous clots, or coagulopathy/bleeding disorders. ONCOLOGIC: Denies personal history of malignancy. DERMATOLOGIC: Denies rashes or pruritus. PSYCHIATRIC: Denies any suicidal or homicidal ideation. Denies hallucinations. Assessment/Plan: ASSESSMENT: [ Intractable Left flank pain of unknown origin POA Uncontrolled hypertension POA Multifactorial anemia POA Electrolyte imbalance hyponatremia Na 132, hypochloremia 98 History of stent placement May [id number] with History of rectal peritoneal hematoma per CT abdomen/pelvis ] PLAN: [ Admit to: Medical-surgical floor with telemetry Consults: None Antibiotics: None Tests: Ultrasound renal. CT spine cervical. CT spine thoracic. CT spine lumbar NEURO: Minimize central acting medications as possible. Fall Precautions. Well lighted room through the day and minimize interruptions through the night to prevent acute delirium. PULMONARY: Supplemental 02 as needed BiPAP as necessary, for respiratory distress Titrate Fio2 to keep Spo2 > or = 90% DuoNebs and CPT as needed IS hourly while awake for pulmonary hygiene Out of bed to chair as tolerated VAP Bundle Maintain aspiration precautions at all times CARDIOVASCULAR: Follow hemodynamics. Vital signs per facility protocol GI & NUTRITION: Continue nutritional support Aspirations precautions Prokinetic agents and laxatives as needed KIDNEYS & ELECTROLYTES: Strict monitoring of intake and output Daily weights Avoid nephrotoxic agents Monitor electrolytes and replace as needed Goal urine output of 30mL/hr or 0.5mL/kg/hr Medications to be dosed according to renal function. Avoid contrast if possible ENDOCRINE: Maintain blood glucose between 100-180 at all times. Insulin sliding scale for blood glucose management Hypoglycemia and hyperglycemia protocol in place INFECTIOUS DISEASE: Trend temperature, WBC and procalcitonin level Follow cultures, deescalate antibiotics as soon as possible. Panculture if new onset fever HEMATOLOGY & COAGULATION: Monitor H&H. Keep Hgb > 7 Transfuse 1 unit of PRBC for Hgb < 7 Transfuse 1 pack of platelets of platelets < 20, 000 Watch for any signs and symptoms of bleeding SKIN: Pressure ulcer prevention per facility protocol Specialty mattress as needed Treatment plan discussed with patient and family at the bedside Medications to be reconciled once obtained by patient and/or family and available to be reconciled in computer p.r.n. medication for pain nausea and vomiting Questions were answered We will continue to monitor the patient closely Nursing Associate for disposition Rehab: PT/OT GI: PPI DVT: SCD's Code Status: Full Resuscitation Disposition: TBD Prognosis: Guarded ] Home Medications: Reported Medications Ferrous Sulfate (Iron) 325 Mg (65 Mg Iron) Tablet, 325 MG PO DAILY, TAB 06/07/24 Atorvastatin Calcium (LIPITOR) 40 Mg Tablet, 40 MG PO HS, TAB 05/27/24 Metoprolol Succinate (Metoprolol Succinate) 25 Mg Tab.er.24h, 25 MG PO DAILY, TAB 05/27/24 Prasugrel HCl (Prasugrel HCl) 10 Mg Tablet, 10 MG PO DAILY, TAB 05/27/24 Aspirin (ASPIRIN 81MG CHEW TAB) 81 Mg Tab.chew, 81 MG PO DAILY, TAB.CHEW 05/27/24 Discontinued Reported Medications Ferrous Sulfate (Ferrous Sulfate) 325 Mg (65 Mg Iron) Ectab, 1 TAB PO DAILY for 30 Days, #30 TAB 0 Refills 05/27/24 Time spent arranging discharge: 31-60 minutes ATTESTATION BY PHYSICIAN I have seen and examined the patient. I reviewed the documentation, medical decision making, and treatment plan as noted by the mid-level provider above. I agree with the findings and plan of care. Iliana Chowdary MD, KATARZYNA B CYTOTECHNOLOGIST/CYTOLOGY SUPERVISOR Jun 08, 2024 13:56
--- NOTE | 2024-06-08 17:25 | NUR ---
DC NOTE DC INSTRUCTIONS AND FOLLOW UP APPOINTMENT GIVEN TO PT AND MOTHER, PRINTED PRESCRIPTION GIVEN AND E-SCRIPT WAS SENT TO LOCAL PHARMACY. VERBALIZED UNDERSTANDING. PIV AND TELE MONITOR REMOVED, CATHETER INTACT. PT IS WHEELED DOWNSTAIRS WITH L[employer]IC MACHINE TENDER INTO VIA PRIVATE CAR. NO FURTHER COMMENTS OR CONCERNS AT THIS TIME.
== END 2024-06-08 17:20 | disposition home or self-care (01) ==
LOC: EDH 04:45 → EDHIP 04:46 → 3AH 15:00
PROVIDERS: ADMIT Hospitalist; ATTEND Hospitalist
DX: R10.9 Unspecified abdominal pain (principal); I10 Essential (primary) hypertension; D64.9 Anemia, unspecified; E87.1 Hypo-osmolality and hyponatremia; E87.8 Other disorders of electrolyte and fluid balance, not elsewhere classified; M54.50 Low back pain, unspecified; M54.2 Cervicalgia; M54.6 Pain in thoracic spine; M62.830 Muscle spasm of back; I21.4 Non-ST elevation (NSTEMI) myocardial infarction; K68.3 Retroperitoneal hematoma; E66.9 Obesity, unspecified; Z86.2 Personal history of diseases of the blood and blood-forming organs and certain disorders involving the immune mechanism; Z79.82 Long term (current) use of aspirin; Z95.5 Presence of coronary angioplasty implant and graft; Z68.34 Body mass index [BMI] 34.0-34.9, adult; Z79.899 Other long term (current) drug therapy
CPT/HCPCS: 96374; 96375; 99285; 80048 ×2; 85025 ×2; 85378; 82948 ×5; 81003; 36415 ×2; 71045; 72125; 72131; 72128; 74176; 78582; 76770; 93005; 96376; 83036; 82550; 80076; 83735; 84484 ×2; 83605; 97161; 97116; 97530 ×3; 84145; G0378 ×30; J7030; J2270; J1885 ×3; A9540; A9558; J2360

== ENCOUNTER 2024-06-11 02:32 | Emergency (ER) | payer SELFPAY ==
[~2024-06-11] VITALS: Ht 165.1 cm; Wt 94.8 kg
[~2024-06-11 02:32] MED LIST changes: +CYCL10TA16 PO; +FERR-82 PO; -FERS325 PO
[2024-06-11] MEDS ORDERED: EPINEPHrine 1MG/10ML(1:10,000) 0.1 MG/ML SYG IVP ONE (02:33)
[2024-06-11] MEDS ORDERED: AMIOdarone 150MG VIAL IV ONE (02:33)
[2024-06-11] MEDS: NITROGLYCERIN 0.4 MG SL TAB SL PRN (02:40)
[2024-06-11] MEDS: morPHINE 2 MG SYG IVP ONE (02:51)
[2024-06-11 03:06] LABS: BASOPHILS # (AUTO) 0.04 K/uL (0.00-0.20); BASOPHILS % (AUTO) 0.3 % (0.0-5.0); EOSINOPHILS # (AUTO) 0.01 K/uL (0.00-0.70); EOSINOPHILS % (AUTO) 0.1 % (0.0-8.0); HEMATOCRIT 28.3 % (42-54); IMMATURE GRANULOCYTE ABSOLUTE 0.05 K/uL (0-1); LYMPHOCYTES # (AUTO) 2.7 K/uL (1.0-4.8); LYMPHOCYTES % (AUTO) 20.7 % (21.0-51.0); MEAN CORPUSCULAR HEMOGLOBIN 26.7 pg (27.0-33.0); MEAN CORPUSCULAR HGB CONC 32.5 g/dL (32.0-36.0); MEAN CORPUSCULAR VOLUME 82.3 fL (79-99); MONOCYTES % (AUTO) 7.5 % (3.0-13.0); NEUTROPHILS # (AUTO) 9.1 K/uL (1.8-7.7); PLATELET COUNT (AUTO) 293 K/uL (130-400); RED BLOOD CELL COUNT(AUTO) 3.44 MIL/uL (4.50-6.20); RED CELL DISTRIBUTION WIDTH 13.4 % (11.0-15.5); WHITE BLOOD COUNT (AUTO) 12.8 K/uL (4.8-10.8)
[2024-06-11] MEDS: 0.9%NACL 1000ML 1,000 ML IV ONE ×2 (03:12→03:17)
[2024-06-11] MEDS: NITROGLYCERIN 0.4 MG SL TAB SL ONE (03:16)
[2024-06-11 03:19] LABS: CREATININE 1.4 mg/dL (0.5-1.3); POTASSIUM 4.1 mmol/L (3.5-5.1)
[2024-06-11 03:24] LABS: MAGNESIUM 1.8 mg/dL (1.80-2.40)
[2024-06-11 03:30] LABS: INR 1.36 (0.85-1.15); PROTHROMBIN TIME 14.8 SEC (9.6-11.6)
[2024-06-11 03:31] LABS: ABG BASE EXCESS -7.6 mmol/L (-2.0-3.0); ABG HCO3 15.2 mmol/L (21.0-28.0); ABG OXYGEN SATURATION 95.6 % (94.0-98.0); ABG PCO2 23 mmHg (35-48); ABG PH 7.438 (7.350-7.450); CARBON MONOXIDE 0.3 % (0.5-1.5); DEVICE COMMENT RN. RR; HHb 4.4; PO2, ARTERIAL BG 86.6 mmHg (83.0-108.0); VENT MODE, BG 2LNC (ROOM AIR)
[2024-06-11 03:32] LABS: B-TYPE NATRIURETIC PEPTIDE 1000 pg/mL (0-100); PARTIAL THROMBOPLASTIN TIME 31.6 SEC (26.3-35.5)
--- NOTE | 2024-06-11 03:39 | NUR ---
PATIENT TO CT WITH RN
--- NOTE | 2024-06-11 03:50 | NUR ---
RETURNED FROM CT, PATIENT MOVED TO ROOM 19 AT THIS TIME
--- NOTE | 2024-06-11 03:55 | NUR ---
ASSUMED PT CARE AT THIS TIME
[2024-06-11] MEDS: metoPROLOL tartRATE 1 MG/ML 5ML VIAL IV ONE (04:00)
--- NOTE | 2024-06-11 04:01 | NUR ---
PT C/O RIGHT LEG PAIN REPORT HIS LEG "FELL ASLEEP AND FEELS NUMB"; ED MD AT BEDSIDE.
[2024-06-11] MEDS: furoSEMIDE 20MG VIAL IV ONE (04:04)
[2024-06-11 04:06] VITALS: TEMP 98.8
[2024-06-11 04:17] VITALS: BP 104/51; RESP 34; O2SAT 100
--- NOTE | 2024-06-11 04:17 | NUR ---
patient reported shortness of breath and chest tightness, postering noted; ed md at bedside
[2024-06-11] MEDS ORDERED: ketaMINE 50MG/ML SYRINGE 50 MG/ML DISP.SYRIN ONE (04:19)
--- NOTE | 2024-06-11 04:19 | NUR ---
CODE BLUE CALLED OVERHEAD, CPR INITIATED, SEE CODE BLUE SHEET
[2024-06-11 04:36] VITALS: PULSE 110
[2024-06-11] MEDS ORDERED: EPINEPHrine 1 MG/ML 30ML VIAL IJ ONE (04:58)
--- NOTE | 2024-06-11 05:16 | NUR ---
ORGAN AND TISSUE DONATION NOTIFIED, SPOKE WITH MINH, PATIENT MEETS CRITERIA FOR DONATION, WILL BE CONTACTED BY [facility], REFERENCE #[id number]
--- NOTE | 2024-06-11 05:31 | ERN ---
General Chief Complaint: Multiple Complaints Stated Complaint: SOB, MUSCLE SPASMS Time Seen by MD: 02:35 Source: patient History of Present Illness Initial Comments Patient is a 29-year-old male coming in to be evaluated for shortness of breath chest pain and back pain. Patient states that he has been having this pain for some time. Along with this patient states that he has been having problems catch in his breath he had an NSTEMI on May 22. Allergies: Coded Allergies: No Known Drug Allergies (Unverified Allergy, Unknown, 05/21/24) Home Meds Active Scripts Cyclobenzaprine HCl (Flexeril) 10 Mg Tab, 1 TAB PO HS for muscle spasms for 30 Days, #30 TAB 0 Refills Prov:ARANTHONYBrandyBASHIR 911 TELECOMMUNICATOR 06/08/24 Reported Medications Ferrous Sulfate (Iron) 325 Mg (65 Mg Iron) Tablet, 325 MG PO DAILY, TAB 06/07/24 Atorvastatin Calcium (LIPITOR) 40 Mg Tablet, 40 MG PO HS, TAB 05/27/24 Metoprolol Succinate (Metoprolol Succinate) 25 Mg Tab.er.24h, 25 MG PO DAILY, TAB 05/27/24 Prasugrel HCl (Prasugrel HCl) 10 Mg Tablet, 10 MG PO DAILY, TAB 05/27/24 Aspirin (ASPIRIN 81MG CHEW TAB) 81 Mg Tab.chew, 81 MG PO DAILY, TAB.CHEW 05/27/24 Discontinued Reported Medications Ferrous Sulfate (Ferrous Sulfate) 325 Mg (65 Mg Iron) Ectab, 1 TAB PO DAILY for 30 Days, #30 TAB 0 Refills 05/27/24 Past Medical History Past Medical History: No Pertinent History, Unknown Past Surgical History: Other Surgical History Other: CARDIAC STENT ROS Dictation CONSTITUTIONAL: chills, no fever, weakness, diaphoresis, no malaise. HEAD/FACE: No signs of trauma. EENT: No eye pain, no blurred vision, no tearing, no double vision, no ear pain, no ear discharge, no nose pain, no nasal congestion, no throat pain, no throat swelling, no mouth pain. RESPIRATORY: No cough, orthopnea, SOB, no stridor, no wheezing. CARDIOVASCULAR: No chest pain, no edema, palpitations, no syncope. GASTROINTESTINAL/ABDOMINAL: No abdominal pain, no constipation, no diarrhea, no nausea, no vomiting. GENITOURINARY: No abnormal discharge, no dysuria, no frequent urination, no hematuria. No complaints of pain in the genitals. MUSCULOSKELETAL: No back pain, no gout, no joint pain, no joint swelling, no muscle pain, no muscle stiffness, no neck pain. INTEGUMENTARY: No change in color, no change in hair/nails, no dryness, no lesion, no lumps, no rash. NEUROLOGICAL/PSYCH: No anxiety, not depressed, no emotional problem, no headache, no numbness, no pre-existing deficit, no history of seizures, no tremors, no weakness. HEMATOLOGIC/LYMPHATIC: Not anemic, no history of blood clots, no apparent bleeding, no bruising, glands not swollen. All Systems Negative, Except as Noted. Physical Exam Physical Exam Dictation VITAL SIGNS: Reviewed. GENERAL APPEARANCE: Alert, oriented x3, acute distress, obese. HEAD AND FACE: Non-traumatic. EYES: PERRL, pink conjunctivas, eyelid no trauma, anterior chamber clear. EARS: Pinnas intact and no signs of trauma or erythema. Ear canals clear and no discharge. TMs no erythema. NOSE: No discharge, no bleeding. OROPHARYNX: Mouth normal, teeth no caries, tongue pink. Pharynx clear, no erythema. Tonsils no exudates, no abscesses noted. Mucous membrane moist. NECK: Supple, non-tender, no thyromegaly, no masses, no JVD, no bruits. BREAST: Deferred. CHEST: No tenderness, no crepitus, no paradoxical movement, no retractions. LUNGS: Clear, well-ventilated, symmetric, rales, no wheezing, rhonchi, no stridor, good breath sounds bilaterally. HEART: Regular rate, sinus tachycardia, no murmur, no gallops. VASCULAR: No peripheral edema. ABDOMEN: Soft, positive bowel sounds, nondistended, no guarding, nontender, no rebound, no masses no hepatomegaly, no splenomegaly, no Boyd's sign, no hernias. RECTAL: Deferred. GENITAL: Deferred. NEUROLOGICAL: Normal speech, gross motor function intact, gross sensory function intact. MUSCULOSKELETAL: Neck nontender, full range of motion, back nontender, full range of motion. EXTREMITIES: Nontender, full range of motion. SKIN: Pale, LYMPHATICS: Deferred. Results Laboratory and Microbiology Lab and Micro Result Laboratory Tests Test 06/11/24 02:55 06/11/24 03:05 06/11/24 03:29 White Blood Count 12.8 K/uL (4.8-10.8) H Red Blood Count 3.44 MIL/uL (4.50-6.20) L Hemoglobin 9.2 g/dL (14.0-18.0) L Hematocrit 28.3 % (42-54) L Mean Corpuscular Volume 82.3 fL (79-99) Mean Corpuscular Hemoglobin 26.7 pg (27.0-33.0) L Mean Corpuscular Hemoglobin Concent 32.5 g/dL (32.0-36.0) Red Cell Distribution Width 13.4 % (11.0-15.5) Platelet Count 293 K/uL (130-400) # Mean Platelet Volume 11.0 fL (7.5-10.5) H Immature Granulocyte % (Auto) 0.4 % (0-1) Neutrophils (%) (Auto) 71.0 % (40.0-77.0) Lymphocytes (%) (Auto) 20.7 % (21.0-51.0) L Monocytes (%) (Auto) 7.5 % (3.0-13.0) Eosinophils (%) (Auto) 0.1 % (0.0-8.0) Basophils (%) (Auto) 0.3 % (0.0-5.0) Neutrophils # (Auto) 9.1 K/uL (1.8-7.7) H Lymphocytes # (Auto) 2.7 K/uL (1.0-4.8) Monocytes # (Auto) 1.0 K/uL (0.1-1.0) Eosinophils # (Auto) 0.01 K/uL (0.00-0.70) Basophils # (Auto) 0.04 K/uL (0.00-0.20) Absolute Immature Granulocyte (auto 0.05 K/uL (0-1) Nucleated Red Blood Cells 0.0 % (0.0-0.19) Prothrombin Time 14.8 SEC (9.6-11.6) H Prothromb Time International Ratio 1.36 (0.85-1.15) H Activated Partial Thromboplast Time 31.6 SEC (26.3-35.5) Sodium Level 133 mmol/L (136-145) L Potassium Level 4.1 mmol/L (3.5-5.1) Chloride Level 97 mmol/L (101-111) L Carbon Dioxide Level 18 mmol/L (21-32) L Blood Urea Nitrogen 11 mg/dL (7-18) Creatinine 1.4 mg/dL (0.5-1.3) H Glomerular Filtration Rate Calc 70 mL/min (>90) Random Glucose 169 mg/dL (70-105) H Lactic Acid Level 5.3 mmol/L (0.8-2.5) H Total Calcium 8.5 mg/dL (8.5-10.1) Magnesium Level 1.80 mg/dL (1.80-2.40) Total Creatine Kinase 81 U/L (21-232) # Troponin I High Sensitivity 1226 ng/L (4-75) *H B-Type Natriuretic Peptide 1000 pg/mL (0-100) H Serum Alcohol < 3 mg/dL (0-10) Whole Blood Glucose 144 MG/DL (70-110) H Blood Gas Specimen Type Arterial Arterial Blood pH 7.438 (7.350-7.450) Arterial Blood Partial Pressure CO2 23 mmHg (35-48) L Arterial Blood Partial Pressure O2 86.6 mmHg (83.0-108.0) Arterial Blood HCO3 15.2 mmol/L (21.0-28.0) L Arterial Blood Oxygen Saturation 95.6 % (94.0-98.0) Arterial Blood Base Excess -7.6 mmol/L (-2.0-3.0) L Hemoglobin (Blood Gas) 9.6 g/dL (13.5-17.5) L Sodium (Blood Gas) 133 MMOL/L (136-145) L Bedside Potassium (Blood Gas) 4.4 MMOL/L (3.4-4.5) Bedside Chloride (Blood Gas) 104 MMOL/L (98-107) Bedside Glucose (Blood Gas) 157 MG/DL (65-95) H Bedside Ionized Calcium (Blood Gas) 1.08 MMOL/L (1.15-1.33) L Bedside Lactic Acid (Blood Gas) 5.83 MMOL/L (0.36-0.75) *H Blood Gas Temperature 37.0 CELSIUS (35.5-37.0) Blood Gas Flow-by 2.00 L/min (0.00-15.00) Blood Gas Vent Mode 2LNC (ROOM AIR) FiO2 28.0 % Blood Gas Specimen Comment RN. RR Labs Reviewed?: Yes EKG/XRAY/US/CT/MRI EKG Comment 06/11/2024 time 233 Ventricular rate 146 Sinus tachycardia [place] [address] wave depressions on leads V4 V5 V6 MDM MDM: Differential diagnosis: NSTEMI, shortness of breath, septic, Rationale: Tests considered and ordered secondary to shared decision making include: labs, ECG and radiology Previous outside records reviewed: Old ER visits. Risk of complication and/or morbidity or mortality of patient management: None Medications-Per medication reconciliation Need for hospitalization: Patient does meet criteria for hospitalization. Need for emergency major/minor surgery: No There are no social concerns with this patient. Prescription drug management Prescriptions will include symptomatic care Patient's prior external medical records from other ER visits were reviewed by me as indicated. Prior testing and results from previous visits were reviewed. Prior tests were taken into account with medical decision making and resource utilization, independent historian/historians were used to obtain complete medical history. I independently interpreted the test that were performed, results were reviewed by me and considered findings on radiology if ordered. Medical management and examination interpretation discussions were had by me with other qualified healthcare professionals as indicated for the patient's care. ED Course Orders Procedure Category Date Status Time Nitroglycerin 0.4mg PHA 06/11/24 Complete Sl Tab (Nitrostat) 02:35 Cbc With Differential LAB 06/11/24 Complete 02:35 Blood Cult RAYA 06/11/24 In Process 02:35 Urinalysis Profile LAB 06/11/24 Logged 02:35 Culture Urine RAYA 06/11/24 Logged 02:35 Creatine Kinase, Total LAB 06/11/24 Complete 02:35 Troponin I High LAB 06/11/24 Complete Sensitivity 02:35 Lactic Acid LAB 06/11/24 Complete 02:35 Basic Metabolic Panel LAB 06/11/24 Complete 02:35 Prothrombin Time With LAB 06/11/24 Complete INR 02:35 B-Type Natriuretic LAB 06/11/24 Complete Peptide 02:35 Chest 1vw RAD 06/11/24 Taken 02:35 12 Lead Ekg Tracing- EKG 06/11/24 Logged Technical 02:35 Nitroglycerin 0.4mg PHA 06/11/24 In Process Sl Tab (Nitrostat) 03:00 Magnesium LAB 06/11/24 Complete 02:35 Partial LAB 06/11/24 Complete Thromboplastin Time 02:35 Morphine 2mg Syg PHA 06/11/24 Complete (Morphine 2mg Syg) 03:00 Drug Screen Urine LAB 06/11/24 Logged 02:55 0.9%Nacl 1000ml (Ns PHA 06/11/24 Complete 1000ml) 03:00 0.9%Nacl 1000ml (Ns PHA 06/11/24 Complete 1000ml) 03:30 Arterial Blood Gas + RT 06/11/24 Transmitted 03:16 Ct Chest W/O Contrast CT 06/11/24 Taken 03:20 Occult Blood Stool LAB 06/11/24 Logged Single Only 03:28 Arterial Blood Gas LAB 06/11/24 Complete Arterial + 03:29 Alcohol, Blood LAB 06/11/24 Complete 03:33 Furosemide 20mg Vial PHA 06/11/24 Complete (Lasix 20mg Vial) 04:00 Troponin I High LAB 06/11/24 Logged Sensitivity 03:54 Metoprolol Tartrate PHA 06/11/24 Complete (Lopressor) 04:00 Ketamine 50mg/Ml PHA 06/11/24 Complete Syringe (Ketamine 04:19 Epinephrine 1 Mg/Ml PHA 06/11/24 Complete 30ml Vial (Epinephri 04:58 Lactic Acid (Removed) LAB 06/11/24 Logged 06:16 Current Medications Medications (Trade) Dose Ordered Sig/Clara Route PRN Reason Start Time Stop Time Status Last Admin Dose Admin Epinephrine HCl (EPINEPHrine 1 MG/ML 30ML VIAL) 30 mg STK-MED ONCE IJ 06/11/24 04:58 06/11/24 04:58 DC Furosemide (LASix 20MG VIAL) 20 mg ONCE ONCE IV 06/11/24 04:00 06/11/24 04:01 DC 06/11/24 04:04 Ketamine HCl (ketaMINE 50MG/ ML SYRINGE) 50 mg STK-MED ONCE .ROUTE 06/11/24 04:19 06/11/24 04:19 DC Metoprolol Tartrate (loprESSOR) 5 mg ONCE ONCE IV 06/11/24 04:00 06/11/24 04:01 DC 06/11/24 04:00 Morphine Sulfate (morPHINE 2MG SYG) 2 mg ONCE ONCE IVP 06/11/24 03:00 06/11/24 03:01 DC 06/11/24 02:51 Nitroglycerin (Nitrostat) 0.4 mg Q5M PRN SL CHEST PAIN 06/11/24 03:00 06/11/24 02:40 Nitroglycerin (Nitrostat) 0.4 mg STK-MED ONCE SL 06/11/24 02:35 06/11/24 02:36 DC Sodium Chloride 1,000 ml @ 0 mls/hr ONCE ONCE IV 06/11/24 03:00 06/11/24 03:01 DC 06/11/24 03:12 Sodium Chloride 1,000 ml @ 1,000 mls/hr Q1H ONCE IV 06/11/24 03:30 06/11/24 04:29 DC 06/11/24 03:17 Vital Signs Date Time Temp Pulse Resp B/P (MAP) Pulse Ox O2 Delivery O2 Flow Rate FiO2 06/11/24 04:36 110 100 06/11/24 04:17 118 34 104/51 100 Nasal Cannula* 2 28 06/11/24 04:10 120 26 109/52 100 Nasal Cannula* 2 28 06/11/24 04:06 98.8 144 30 114/61 98 Nasal Cannula* 2 28 06/11/24 04:00 150 116/59 06/11/24 03:23 149 29 111/55 100 Nasal Cannula* 2 28 06/11/24 03:04 148 26 96/45 98 Room Air* 0 21 06/11/24 02:33 96.8 111 26 114/63 94 Room Air Procedure Dictation Patient is a 29-year-old male coming in shortness of breath and chest pain radiating to the back. Patient does have a history of NSTEMI which took place on May. Patient was being evaluated for elevated troponin and EKG changes suggestive of dense STEMI. Upon being evaluated patient's heart rate was lost patient went into cardiac arrest code blue was called multiple rounds of epi were given Ross was gained several times but ultimately after several doses of epinephrine decision was made to stop code blue. DX & DISP Disposition: Departure Impression: Primary Impression: Non-STEMI (non-ST elevated myocardial infarction) Condition: Referrals: SELF,REFERRAL (PCP) JERICA GOLDMAN MD Jun 11, 2024 05:31
--- NOTE | 2024-06-11 05:47 | NUR ---
[facility] CALL BACK SPOKE WITH MACHO, PATIENT MEETS CRITERIA FOR TISSUE AND CORNEA DONATION, WILL CONTACT MOTHER. NO HOME INFORMATION AT THIS TIME.
--- NOTE | 2024-06-11 08:15 | HMCIMG ---
PORTABLE CHEST RADIOGRAPH INDICATION: CHEST PAIN COMPARISON: 06/07/2024 FINDINGS: laboratory monitor leads overlie the field of view. Heart size is normal. The pulmonary vascularity and florian appear normal. No abnormal pulmonary parenchymal opacity or consolidation identified. No significant pleural effusion noted. No pneumothorax detected. IMPRESSION: No radiographic evidence for any acute cardiopulmonary process.
--- NOTE | 2024-06-11 08:21 | HMCIMG ---
CT CHEST WITHOUT CONTRAST INDICATION: Right-sided chest pain radiating to the back TECHNIQUE: Routine axial images using 5 mm slice thickness were acquired from the lung apices to the bases without the administration of IV contrast.Coronal and sagittal reformatted images acquired for interpretation. CT was performed with one or more of the following dose reduction techniques: Automated exposure control, adjustment of the mA and/or kV according to patient size, or use of iterative reconstruction technique. COMPARISON: None FINDINGS: The heart size is normal. No pericardial effusion noted. The visualized great vessels and thoracic aorta are within normal limits. The trachea and airways are patent. No evidence for pulmonary nodule, consolidation, cavitary lesion, or other abnormal pulmonary parenchymal opacity. Minimal right greater than left lung base atelectasis. No axillary, hilar, or mediastinal lymphadenopathy. Trace right pleural fluid without pneumothorax. Limited views of the upper abdomen appear normal. Visible osseous structures are intact. IMPRESSION: Trace right pleural fluid and minimal right greater than left lung base atelectasis, without pneumonia at this juncture.
--- NOTE | 2024-06-11 17:00 | EKG ---
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
== END 2024-06-11 07:32 ==
LOC: EDH 02:32
DX: I21.4 Non-ST elevation (NSTEMI) myocardial infarction (principal); Z79.02 Long term (current) use of antithrombotics/antiplatelets; Z79.82 Long term (current) use of aspirin; Z79.899 Other long term (current) drug therapy; Z95.5 Presence of coronary angioplasty implant and graft; Z98.890 Other specified postprocedural states
CPT/HCPCS: 99285; 92950; 31500; 96374; 71250; 96375; 71045; 96361; 82947; 82435; 82550; 83735; 84484; 84132; 84295; 80048; 82803; 83880; 85025; 85610; 85730; 85018; 87040 ×2; 82948; 83605 ×2; 36415; 93005; 36600; J3490 ×5; J2310; J2270; J7030; J0171 ×3; J3475; J0461; J1940; J1265; J0282; 94002